=== PATIENT | male | born 1975 | race Caucasian/White ===

== ENCOUNTER → 2020-01-29 13:39 | Outpatient (CLI) | payer OTHER, SELFPAY ==
[2020-02-01 09:55] LABS: COVID19 Sendout Not Detected (Not Detect)
== END ==
PROVIDERS: Visit Provider Physician Assistant
DX: Z11.59 Encounter for screening for other viral diseases (principal)
CPT/HCPCS: 87635

== ENCOUNTER 2020-02-01 12:52 | Day surgery (SDC) | payer OTHER, SELFPAY ==
[2020-01-29 08:19] VITALS: BMI 34.7
[2020-02-01] VITALS (7 sets, daily range): BP systolic 109–135; BP diastolic 73–88; PULSE 63–89; RESP 10–18; TEMP 36.2–36.4; O2SAT 93–96; BMI 34.7
[2020-02-01] MEDS: LACTATED RINGERS 1,000 ML 100 ML IV (13:14)
[2020-02-01] MEDS: ACETAMINOPHEN 325 MG TABLET 975 MG PO (13:14)
[2020-02-01] MEDS: CEFAZOLIN 2 GM/100 ML FROZ.PIGGY IV (14:08)
--- NOTE | 2020-02-01 14:13 | PM.PREOP ---
Pre-operative Note COVID-19 COVID-19 status: Negative Result date/Date tested (Pos, Neg/Pending): 01/29/20 Interval Note History & Physical reviewed/Exam performed by Physician: Yes Changes to H&P: No
--- NOTE | 2020-02-01 14:33 | SUR.OPER ---
Supine on padded OR bed, head on pillow, arms secured on padded arm boards at <90 degrees abduction, legs uncrossed, safety belt at thigh, tape over blanket over lower legs.
[2020-02-01] MEDS: BUPIVACAINE 0.5% (PF) VIAL 30 ML INJ (14:41)
--- NOTE | 2020-02-01 15:22 | P.OP_ITS ---
Operative Date/Time/Diagnoses Date of procedure: 02/01/20 Time of procedure: 15:10 Pre-op diagnosis: Umbilical hernia reducible Post-op diagnosis: same Procedure & Clinicians Procedure: Repair with underlay of mesh Same procedure as scheduled: Yes Indications: Symptomatic hernia Surgeon: Mane Tompkins Click Yes if Unassisted: Yes Anesthesia Type: General Operative Notes Findings: Small defect. Placed a 1.7 in piece of mesh under it. Closure Type: primary Specimen(s): none sent Prosthetic devices, grafts, tissues, transplants, or devices: Mesh Estimated Blood Loss (mL): 5 Procedure in detail: The patient fine on the operating room table underwent general LMA anesthesia was prepped and draped in the usual fashion. Local anesthetic was infiltrated in a field block fashion around the umbilicus. Curvilinear incision was made at the lower edge. It was carried down under direct vision to the fascial layer. Fascia was identified hernia sac was identified from the fascia and the hernia sac reduced. It was d issected underneath the fascial edge far enough that I could put a 1.7 in diameter mesh under the fascia. This was accomplished and the fascial edge having been cleared of tissue was closed with figure of 800 Ethibond sutures incorporating the edge of the mesh tags into the closure. The umbilicus was tacked down with interrupted 3 0 Vicryl. The subcu was closed with interrupted 3 0 Vicryl. The skin was closed with a running 4 0 Vicryl subcuticular stitch and Steri-Strips. Dressing was applied and patient was awakened and taken recovery room good condition. Complications: none Post-operative Condition: stable Disposition: PACU
--- NOTE | 2020-02-01 15:22 | SUR.PHASEI ---
Pt received to PACU at 1515. Airway patent, self maintained. Report from Dr Sullivan and circulating RN.
--- NOTE | 2020-02-01 15:47 | SUR.PHASEII ---
Pt resting comfortably drinking coffee with no c/o, denies pain or nausea.
--- NOTE | 2020-02-01 16:23 | SUR.PHASEII ---
Pt up and ambulating, gait steady, no c/o dressed and ready to go. All dc instructions given and pt verbalizes understanding.
== END 2020-02-01 16:20 | disposition home or self-care (01) ==
PROVIDERS: Referring Provider Specialist; Visit Provider Specialist
PROC: (CPT 49585; principal; 2020-02-01 14:15)
DX: K42.9 Umbilical hernia without obstruction or gangrene (principal)
CPT/HCPCS: 49585; C1781; J0330; J0690; J1100; J1885; J2250; J2405; J2704; J3010